=== PATIENT | male | born 1965 | race Caucasian/White ===

== ENCOUNTER 2021-11-11 10:17 | Emergency (ER) | payer OTHER ==
[2021-11-11] MEDS ORDERED: IBUPROFEN600 MG PO (12:04)
[2021-11-11] MEDS ORDERED: HYDROCODON-ACE1 EAC4 PO (12:11)
== END 2021-11-11 12:15 | disposition home or self-care (01) ==
LOC: ER1 10:17
DX: S61.441A Puncture wound with foreign body of right hand, initial encounter (principal); S49.91XA Unspecified injury of right shoulder and upper arm, initial encounter; X58.XXXA Exposure to other specified factors, initial encounter
CPT/HCPCS: 73110; 73130; 73200; 96374; 96375; 99284; J2270; J2405